=== PATIENT | male | born 1970 | race Caucasian/White ===

== ENCOUNTER 2025-05-06 20:38 | Emergency (ER) | payer MEDICAID, SELFPAY ==
[2025-05-06 20:46] VITALS: BP 160/102; PULSE 89; RESP 16; TEMP 36.7; O2SAT 98; BMI 18.4
--- NOTE | 2025-05-06 20:54 | HMH.EDGENADL ---
Discharge Plan Disposition Patient Disposition: Home, Self-Care Condition: Good Prescriptions Prescriptions: New naproxen 500 mg tablet 500 mg PO BID Qty: 20 0RF Referrals Follow up/Referrals: Alphonse Arellano DO [Staff Physician, Family Practice] - See instructions Provider,Referral, [Primary Care Provider, Medical] - See instructions Activity Restrictions/Add. Instructions Additional Instructions/Restrictions: You were evaluated in the emergency department today. As we discussed, your labs do not point towards anything life-threatening today, however we are scheduling an outpatient DVT ultrasound. Please follow-up closely for this. I also recommend close follow-up with a primary care provider over the next week. 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 You may also take Tylenol every 4-6 hours as needed for pain. Return to the emergency department for new or worsening symptoms. Clinical Impressions Clinical Impression: Bilateral leg edema, Hypokalemia Stand Alone Forms Stand Alone Forms: Work/School Release Instructions Patient Instructions: DI for Edema Due to Venous Stasis, DI for Dependent Edema Print Language Print Language: Kenyan Discharge ED Provider: Kalina Rouse General Adult HPI <ASIA Mcclain - Last Filed: 05/06/25 20:54> General Chief complaint: Extremity Injury, Lower Stated complaint: Feet swollen,hurts to touch Time Seen by Provider: 05/06/25 20:54 Mode of Arrival: Ambulatory Source of Information: Patient Description of Symptoms (Recalled from ER Triage Doc. by RN): pt presents to the ed for evaluation of BLE swelling that began x1 week ago with worsening today with associated tenderness. Pt denies CP, SOA. Pt denies any medical HX which he takes medications for. Related Data Previous Rx's ?Medication ?Instructions ?Recorded naproxen 500 mg tablet 500 mg PO BID #20 tabs 05/06/25 Allergies Allergy/AdvReac Type Severity Reaction Status Date / Time Penicillins Allergy Rash Verified 05/06/25 20:51 <Kalina Rouse DO - Last Filed: 05/06/25 23:21> History of Present Illness HPI narrative: This patient is a 54-year-old male who past medical history but does not follow regularly with a primary care doctor presenting to the emergency department for evaluation with concern for bilateral leg swelling that started a week ago but got worse today. He notes that his feet are very tender. He denies any redness, warmth, difficulty with weightbearing, chest pain, shortness of breath, fevers, chills, or other concerns. He denies any known traumatic injuries or falls. No open wounds either. [facility] <ASIA Mcclain - Last Filed: 05/06/25 20:54> [facility] Disclaimer: The information contained in this section may have been updated after the patient was seen, as this information can be updated by other users. Social History Smoking Status: Current every day smoker alcohol intake: never current occupational status: unemployed Travel in the last 8 weeks?: None <Kalina Rouse DO - Last Filed: 05/06/25 23:21> ROS Obtained: Yes All systems reviewed & no additional complaints except as documented Physical Exam <Kalina Rouse DO - Last Filed: 05/06/25 23:21> General General appearance: alert and in no apparent distress Head Head exam: atraumatic and normocephalic Eye Eye exam: Present normal appearance, PERRL and EOMI ENT ENT exam: Present normal exam, normal oropharynx, mucous membranes moist and normal external ear exam Neck Neck exam: Present normal inspection, full ROM and trachea midline; Absent tenderness Chest Chest inspection: Present normal inspection and symmetric chest wall rise; Absent tenderness Respiratory Respiratory exam: Present normal lung sounds bilaterally; Absent respiratory distress, wheezes, stridor or accessory muscle use Cardiovascular Cardiovascular exam: Present regular rate and normal rhythm Abdominal Exam Abdominal exam: Present soft; Absent distention, tenderness or guarding Extremities Exam Extremities exam: Present full ROM, normal capillary refill, edema and other (Bilateral lower extremity pitting edema, right greater than left, with no significant joint redness, warmth. No open wounds. Intact range of motion of all joints. Neurovascularly intact distally.); Absent tenderness Back Exam Back exam: Present normal inspection and full ROM; Absent tenderness Neurological Exam Neurological exam: Present alert, oriented X3, CN II-XII intact and normal gait; Absent motor sensory deficit Psychiatric Psychiatric exam: Present normal affect and normal mood Skin Skin exam: Present warm and dry Medical Decision Making <ASIA Mcclain - Last Filed: 05/06/25 20:54> Medical Records Screening: Per USPSTF and CDC recommendations, given the prevalence of disease in our region, it is our hospital?s policy to screen for HIV and viral Hepatitis for all patients aged 18 and over and those with ongoing risk factors. Vital Signs: 05/06/25 20:46 05/06/25 21:00 05/06/25 21:30 Temperature 98.1 F Temperature Source Oral Pulse Rate 88 71 Pulse Rate [Radial] 89 Respiratory Rate 16 Blood Pressure 139/85 130/87 Blood Pressure [Right Arm] 160/102 H Blood Pressure Mean [Right Arm] 121 Blood Pressure Source Blood Pressure Position Blood Pressure Position [Right Arm] Sitting 02 Sat by Pulse Oximetry 98 96 99 Oxygen Delivery Method Room Air 05/06/25 23:06 Temperature 97.9 F Temperature Source Oral Pulse Rate 67 Pulse Rate [Radial] Respiratory Rate 18 Blood Pressure 137/85 Blood Pressure [Right Arm] Blood Pressure Mean [Right Arm] Blood Pressure Source Automatic Cuff Blood Pressure Position Sitting Blood Pressure Position [Right Arm] 02 Sat by Pulse Oximetry Oxygen Delivery Method Room Air Lab Data Lab Results 05/06/25 21:11: WBC 11.1 H, RBC 4.20 L, Hgb 13.1 L, Hct 39.1 L, MCV 93.1, MCH 31.2, MCHC 33.5, RDW 13.1, Plt Count 284, MPV 11.4 H, Neut % (Auto) 55.6, Lymph % (Auto) 32.7, [place] % (Auto) 8.5, Eos % (Auto) 2.4, Baso % (Auto) 0.5, Neut # (Auto) 6.2, Lymph # (Auto) 3.6, [place] # (Auto) 1.0, Eos # (Auto) 0.3, Baso # (Auto) 0.1, ESR 20, D-Dimer 0.88 H, Sodium 137, Potassium 3.3 L, Chloride 101, Carbon Dioxide 29, Anion Gap 10.3, BUN 7 L, Creatinine 1.00, Estimated Creat Clear 69, Estimated GFR 78, Est GFR ( Amer) 95, Glucose 92, Calcium 9.2, Total Bilirubin 0.8, AST 36, ALT 26, Alkaline Phosphatase 92, Total Creatine Kinase 48 L, C-Reactive Protein 12.9 H, NT-Pro-B Natriuret Pep < 20.0, Total Protein 7.5, Albumin 4.4, Globulin 3.1, Albumin/Globulin Ratio 1.4 05/06/25 21:37: Lactate 1.3 05/06/25 22:35: Urine Color Yellow, Urine Appearance Clear, Urine pH 6.0, Ur Specific Welcome 1.010, Urine Protein Negative, Urine Glucose (UA) Negative, Urine Ketones Negative, Urine Blood Trace-i, Urine Nitrate Negative, Urine Bilirubin Negative, Urine Urobilinogen 1.0, Ur Leukocyte Esterase Negative, Urine RBC 3-5, Urine WBC 3-5, Ur Squamous Epith Cells 3-5, Urine Bacteria 1+, Urine Mucus 1+ 05/06/25 21:11 05/06/25 21:11 Orders (Tests/Meds): ED MEDICATIONS Discontinued Medications Generic Name Dose Route Start Last Admin Trade Name Freq PRN Reason Stop Dose Admin Ketorolac Tromethamine 15 mg 05/06/25 22:31 05/06/25 22:55 Ketorolac 30mg/Ml Vial IV 05/06/25 22:32 15 mg ONCE ONE Administration Potassium Chloride 40 meq 05/06/25 22:12 05/06/25 22:32 Potassium Chloride 20meq Tab PO 05/06/25 22:13 40 meq ONCE ONE Administration ORDERS Category Date Time Status BNP [NT Pro Brain Natriuretic Pep.] Stat Lab 05/06/25 21:11 Completed CK [Creatine Kinase] Stat Lab 05/06/25 21:11 Completed CRP [C-Reactive Protein] Stat Lab 05/06/25 21:11 Completed Complete Blood Count Auto Diff Stat Lab 05/06/25 21:11 Completed Comprehensive Metabolic Panel Stat Lab 05/06/25 21:11 Completed D-Dimer Stat Lab 05/06/25 21:11 Completed ESR [Erythrocyte Sedimentation Rate] Stat Lab 05/06/25 21:11 Completed HIV Combo Stat Lab 05/06/25 21:11 Received Hepatitis C Ab Qual. W/ RFX Stat Lab 05/06/25 21:11 Received Lactic Acid Stat Lab 05/06/25 21:37 Completed UA [Urinalysis and Microscopic] Stat Lab 05/06/25 22:35 Completed <Kalina Rouse, DO - Last Filed: 05/06/25 23:21> Medical Records Medical records reviewed: Yes I reviewed the patient's medical records. [place] Inquiry Pt receiving controlled substance: No Vital Signs: 05/06/25 20:46 05/06/25 21:00 05/06/25 21:30 Temperature 98.1 F Temperature Source Oral Pulse Rate 88 71 Pulse Rate [Radial] 89 Respiratory Rate 16 Blood Pressure 139/85 130/87 Blood Pressure [Right Arm] 160/102 H Blood Pressure Mean [Right Arm] 121 Blood Pressure Source Blood Pressure Position Blood Pressure Position [Right Arm] Sitting 02 Sat by Pulse Oximetry 98 96 99 Oxygen Delivery Method Room Air 05/06/25 23:06 Temperature 97.9 F Temperature Source Oral Pulse Rate 67 Pulse Rate [Radial] Respiratory Rate 18 Blood Pressure 137/85 Blood Pressure [Right Arm] Blood Pressure Mean [Right Arm] Blood Pressure Source Automatic Cuff Blood Pressure Position Sitting Blood Pressure Position [Right Arm] 02 Sat by Pulse Oximetry Oxygen Delivery Method Room Air Lab Data Lab results reviewed: Yes I reviewed the patient's lab results. Lab Results 05/06/25 21:11: WBC 11.1 H, RBC 4.20 L, Hgb 13.1 L, Hct 39.1 L, MCV 93.1, MCH 31.2, MCHC 33.5, RDW 13.1, Plt Count 284, MPV 11.4 H, Neut % (Auto) 55.6, Lymph % (Auto) 32.7, [place] % (Auto) 8.5, Eos % (Auto) 2.4, Baso % (Auto) 0.5, Neut # (Auto) 6.2, Lymph # (Auto) 3.6, [place] # (Auto) 1.0, Eos # (Auto) 0.3, Baso # (Auto) 0.1, ESR 20, D-Dimer 0.88 H, Sodium 137, Potassium 3.3 L, Chloride 101, Carbon Dioxide 29, Anion Gap 10.3, BUN 7 L, Creatinine 1.00, Estimated Creat Clear 69, Estimated GFR 78, Est GFR ( Amer) 95, Glucose 92, Calcium 9.2, Total Bilirubin 0.8, AST 36, ALT 26, Alkaline Phosphatase 92, Total Creatine Kinase 48 L, C-Reactive Protein 12.9 H, NT-Pro-B Natriuret Pep < 20.0, Total Protein 7.5, Albumin 4.4, Globulin 3.1, Albumin/Globulin Ratio 1.4 05/06/25 21:37: Lactate 1.3 05/06/25 22:35: Urine Color Yellow, Urine Appearance Clear, Urine pH 6.0, Ur Specific [place] 1.010, Urine Protein Negative, Urine Glucose (UA) Negative, Urine Ketones Negative, Urine Blood Trace-i, Urine Nitrate Negative, Urine Bilirubin Negative, Urine Urobilinogen 1.0, Ur Leukocyte Esterase Negative, Urine RBC 3-5, Urine WBC 3-5, Ur Squamous Epith Cells 3-5, Urine Bacteria 1+, Urine Mucus 1+ Orders (Tests/Meds): ED MEDICATIONS Discontinued Medications Generic Name Dose Route Start Last Admin Trade Name Freq PRN Reason Stop Dose Admin Ketorolac Tromethamine 15 mg 05/06/25 22:31 05/06/25 22:55 Ketorolac 30mg/Ml Vial IV 05/06/25 22:32 15 mg ONCE ONE Administration Potassium Chloride 40 meq 05/06/25 22:12 05/06/25 22:32 Potassium Chloride 20meq Tab PO 05/06/25 22:13 40 meq ONCE ONE Administration ORDERS Category Date Time Status BNP [NT Pro Brain Natriuretic Pep.] Stat Lab 05/06/25 21:11 Completed CK [Creatine Kinase] Stat Lab 05/06/25 21:11 Completed CRP [C-Reactive Protein] Stat Lab 05/06/25 21:11 Completed Complete Blood Count Auto Diff Stat Lab 05/06/25 21:11 Completed Comprehensive Metabolic Panel Stat Lab 05/06/25 21:11 Completed D-Dimer Stat Lab 05/06/25 21:11 Completed ESR [Erythrocyte Sedimentation Rate] Stat Lab 05/06/25 21:11 Completed HIV Combo Stat Lab 05/06/25 21:11 Received Hepatitis C Ab Qual. W/ RFX Stat Lab 05/06/25 21:11 Received Lactic Acid Stat Lab 05/06/25 21:37 Completed UA [Urinalysis and Microscopic] Stat Lab 05/06/25 22:35 Completed Medical Decision Narrative: In summary, this patient is a 54-year-old presenting to the Emergency Department for evaluation of bilateral leg swelling. Differential diagnoses considered include but are not limited to dependent edema, venous stasis, venous insufficiency, nephrotic syndrome, LUAN, CHF, DVT, cellulitis, dehydration. Ruling out the most morbid conditions drove assessment. On exam, the patient has bilateral lower extremity edema, right slightly worse than left. No significant redness, warmth, or skin color changes. Intact range of motion of all joints and is neurovascularly intact distally. No open wounds. Workup included CBC, CMP, ESR, CRP, CK, lactic acid, D-dimer, urinalysis. Labs were obtained that demonstrated mildly elevated D-dimer. CBC is reassuring with only very mild leukocytosis and very mild anemia. He has mild hypokalemia for which oral repletion was ordered. Inflammatory markers are very mildly elevated, which is nonspecific. I do not think the clinical exam likely represents cellulitis. Urine does not demonstrate any significant protein. Kidney function is normal. BNP is also within normal limits. Given elevated D-dimer, I provided the patient with outpatient DVT ultrasound order, as DVT ultrasound is not able to be done at night. Will trial anti-inflammatories with Toradol here and then naproxen as a prescription to see if we can get some symptomatic improvement in his pain. Ultimately, I feel that he does not have any acute life-threatening pathology that requires admission to the hospital or further inpatient evaluation. I feel he is appropriate for discharge home with very close PCP follow-up and outpatient DVT ultrasound as discussed. He was given strict return precautions and was discharged after all questions were answered. Critical Care <Kalina Rouse, DO - Last Filed: 05/06/25 23:21> Critical Care Time Critical Care Time: No
[2025-05-06 21:00] VITALS: BP 139/85; PULSE 88; O2SAT 96
[2025-05-06 21:30] VITALS: BP 130/87; PULSE 71; O2SAT 99
[2025-05-06 21:35] LABS: Basophils # 0.1 K/mm3 (0-0.2); Basophils % 0.5 % (0.1-2.0); Eosinophils # 0.3 Kmm3 (0.0-0.4); Eosinophils % 2.4 % (0.1-12.0); Hematocrit 39.1 % (42.0-52.0); Hemoglobin 13.1 g/dL (14.1-18.0); Immature Granulocytes # 0.03 10^3uL; Immature Granulocytes % 0.3 %; Lymphocytes # 3.6 K/mm3 (0.7-4.5); Lymphocytes % 32.7 % (10-50); Mean Corpuscular HGB Conc 33.5 g/dL (31.8-35.4); Mean Corpuscular Hemoglobin 31.2 pg (27.0-31.2); Mean Corpuscular Volume 93.1 fl (80-94); Mean Platelet Volume 11.4 fl (7.4-10.4); Monocytes % 8.5 % (1.7-9.3); Neutrophils # 6.2 K/mm3 (1.8-7.8); Neutrophils % 55.6 % (37.0-80.0); Nucleated Red Blood Cells # 0 10^3/uL; Nucleated Red Blood Cells % 0 %; Platelet Count 284 K/mm3 (142-424); Red Cell Distribution Width 13.1 % (11.5-17.5); Red Cell Distribution Width-SD 44.6 fL; White Blood Count 11.1 K/mm3 (4.8-10.8)
--- NOTE | 2025-05-06 21:38 | PC.NURSE ---
[place] top lab tube drawn and sent to the lab
[2025-05-06 21:46] LABS: Alanine Aminotransferase 26 U/L (12-78); Albumin Level 4.4 g/dl (3.5-5.0); Albumin/Globulin Ratio 1.4 (1.1-1.8); Alkaline Phosphatase 92 U/L (38-126); Anion Gap 10.3 mEq/L (5-15); Aspartate Amino Transferase 36 U/L (17-59); Bilirubin,Total 0.8 mg/dl (0.2-1.3); Blood Urea Nitrogen 7 mg/dl (9-20); Calcium 9.2 mg/dl (8.4-10.2); Carbon Dioxide 29 mmol/L (22.0-30.0); Chloride 101 mmol/L (98-107); Creatine Kinase 48 U/L (55-170); Creatinine Clearance Estimated 69 mL/min (50-200); Estimated Glomerular Filt Rate 78 ml/min (>60); GFR (African American) 95 ML/MIN (>60); Globulin 3.1 g/dL (1.3-3.2); Glucose 92 mg/dl (74-100); Potassium 3.3 mmoL/L (3.5-5.1); Sodium 137 mmol/L (136-145); Total Protein,Serum 7.5 g/dl (6.3-8.2)
[2025-05-06 21:52] LABS: C-Reactive Protein 12.9 mg/L (0-4); D-Dimer 0.88 ug/mL (0.0-0.5)
[2025-05-06 21:58] LABS: NT Pro Brain Natriuretic Pep. < 20.0 pg/mL (0-125)
[2025-05-06 22:10] LABS: Erythrocyte Sedimentation Rate 20 mm/hr (0-20)
[2025-05-06 22:11] LABS: Lactic Acid 1.3 mmol/L (0.7-2.1)
[2025-05-06] MEDS: POTASSIUM CHLORIDE 20MEQ TAB 40 MEQ PO (22:32)
[2025-05-06 22:41] LABS: Microscopic, Urine URINE MICROSCOPIC (MICROSCOPIC)
[2025-05-06 22:43] LABS: Appearance,Urine CLEAR (Clear); Bilirubin,Urine Negative (Negative); Blood, Urine TRACE-I (Negative); Color,Urine YELLOW (Yellow); Glucose,Urine (UA) Negative (Negative); Ketones,Urine Negative (Negative); Leukocyte Esterase,Urine Negative (Negative); Nitrate,Urine Negative (Negative); Protein,Urine Negative (Negative)
[2025-05-06 22:54] LABS: Bacteria,Urine 1+ /lpf; Mucus,Urine 1+ /lpf
[2025-05-06] MEDS: KETOROLAC 30MG/ML VIAL 15 MG IV (22:55)
[2025-05-06 23:06] VITALS: BP 137/85; PULSE 67; RESP 18; TEMP 36.6; O2SAT 99
--- NOTE | 2025-05-06 23:07 | PC.NURSE ---
IV discontinued. Catheter tip intact. Bleeding controlled.
[2025-05-07 00:06] LABS: HIV Combo NEGATIVE (Negative)
[2025-05-07 00:13] LABS: Hepatitis C Ab Qual. W/ RFX NEGATIVE (Negative)
== END 2025-05-06 23:11 | disposition home or self-care (01) ==
PROVIDERS: Emergency Provider Emergency Medicine
DX: R60.0 Localized edema (principal); E87.6 Hypokalemia; F17.210 Nicotine dependence, cigarettes, uncomplicated
CPT/HCPCS: 80053; 81001; 82550; 83605; 83880; 85025; 85378; 85651; 86140; 86803; 87389; 96374; 99284; J1885